=== PATIENT | female | born 2000 | race African-American/Black ===

== ENCOUNTER 2023-09-08 19:23 | Emergency (ER) | payer OTHER, SELFPAY ==
[2023-09-08 19:39] VITALS: RESP 16; O2SAT 99
[2023-09-08 19:40] VITALS: BP 135/78; PULSE 74; RESP 18; TEMP 36.7; O2SAT 99; BMI 23.8
--- NOTE | 2023-09-08 20:39 | ED_ITS ---
[facility] - General Adult General Date Seen: 09/08/23 Chief complaint: Unspecified Complaint, Adult Stated complaint: ingrown toenail Time Seen by Provider: 09/08/23 19:24 Source: patient Mode of arrival: ambulatory Limitations: no limitations History of Present Illness [facility] narrative: Patient is a 22-year-old female presenting for bilateral big toe pain. She is having issues with ingrown toenails bilaterally. Left is notably worse than the right. States the pain is getting worse. Has not been on any antibiotics. Denies fevers, chills, weakness disc. No other concerns noted Related Data Home Medications Medication Instructions Recorded Confirmed No Known Home Medications 04/09/22 09/08/23 Allergies Allergy/AdvReac Type Severity Reaction Status Date / Time No Known Drug Allergies Allergy Verified 09/08/23 19:40 Review of Systems Narrative: Pertinent systems were reviewed and were negative unless stated in HPI REPLACED BY [facility] Medical History (Updated 09/08/23 @ 21:10 by Kraig Ott DO) No significant past medical history Surgical History (Updated 09/08/23 @ 19:46 by Arturo Allen RN) No significant past surgical history Social History Smoking Status: Never smoker Second hand tobacco smoke exposure: No How often do you have a drink containing alcohol: never How often do you have six or more drinks on one occasion: Never AUDIT-C Alcohol total score: 0 Non-prescribed substance use: denies use Little interest or pleasure in doing things: not at all Feeling down, depressed, or hopeless: not at all Exam Narrative: Exam Narrative: Const: Well-nourished, Well-developed, in mild distress Eyes: PERRL, no conjunctival injection, and symmetrical lids HENT: Atraumatic external nose and ears. Moist mucous membranes. MSK:Extremities w/o deformity, Normal Active ROM Skin: Warm, Dry. No rashes or lesions. Ingrown toenail seen bilaterally with some discharge coming from the left. Both are on the medial aspect of the toe Neuro: Normal Muscle tone, No focal neurological deficits. Psych: Awake, Alert, & Oriented x3. Appropriate mood and affect. Const: Vital Signs, click to edit/add: Vital Signs - 24 hr 09/08/23 19:39 09/08/23 19:40 Temperature 98.1 F Pulse Rate [Right Pulse Oximeter] 74 Respiratory Rate 18 Respiratory Rate [ Left Toe] 16 Blood Pressure [Ri ght Upper Arm] 135/78 Pulse Oximetry 99 Oxygen Delivery Me thod Room Air Course Vital Signs Vital signs: Initial Vital Signs Respiratory Rate 16 09/08/23 19:39 Vital Signs Respiratory Rate 16 09/08/23 19:39 Temperature 98.1 F 09/08/23 19:40 Pulse Rate 74 09/08/23 19:40 Respiratory Rate 18 09/08/23 19:40 Blood Pressure 135/78 09/08/23 19:40 Pulse Oximetry 99 09/08/23 19:40 Oxygen Delivery Method Room Air 09/08/23 19:40 Medications Administered Medications: Discontinued Medications Generic Name Dose Route Start Last Admin Trade Name Freq PRN Reason Stop Dose Admin Lidocaine/Epinephrine 6 ml 09/08/23 20:41 09/08/23 20:40 Lidocaine 1%-Epi 1:100,000 20 Ml INFILTRATI 09/08/23 20:42 6 ml ONCE ONE Administration Medical Decision Making MDM Narrative Medical decision making narrative: Patient is a 22-year-old female presenting for a bilateral big toe ingrown toenails. Left is worse than right. She does want ingrown portion removed. Will started on the left. I removed the nail portion that was ingrown causing the issues on both big toes. She tolerated the procedure well. She is doing well and can be discharged home. Not requiring antibiotics Discharge Plan Discharge Clinical Impression: Ingrowing toenail Patient Disposition: Home, Self-Care Condition: Stable Instructions: Ingrown Nail (ED) Additional Instructions: Take Tylenol and ibuprofen if you are having any pain. Antibiotics are necessary at this time but he can follow up with primary care provider if symptoms are not improving. Prescriptions: No Action No Known Home Medications Follow Up/Referrals: Agustin Hobson MD [Primary Care Provider] - Stand Alone Forms: [facility] Info Instructions Procedures Nail Procedure Location (toes): first digit (Bilateral big toe) Procedure performed: nail avulsion (partial removal ingrown toenail)
[2023-09-08 21:53] VITALS: BP 122/68; PULSE 79; RESP 18; TEMP 36.7; O2SAT 99
== END 2023-09-08 21:23 | disposition home or self-care (01) ==
PROVIDERS: Emergency Provider Student in an Organized Health Care Education/Training Program; PCP Family Medicine
DX: L60.0 Ingrowing nail (principal)
CPT/HCPCS: 11730; 11732; 99282; 99283

== ENCOUNTER 2023-11-29 08:07 | Emergency (ER) | payer OTHER, SELFPAY ==
[2023-11-29 08:19] VITALS: BP 115/72; PULSE 56; RESP 16; TEMP 36.8; O2SAT 99; BMI 25.3
--- NOTE | 2023-11-29 10:47 | ED_ITS ---
HPI - General Adult General Chief complaint: Extremity Pain/Injury, Lower Stated complaint: ingrown toenail Time Seen by Provider: 11/29/23 08:28 History of Present Illness HPI narrative: This 23-year-old female comes in with pain in her left great toe because the toenail is cutting in on the lateral aspect of the toe. She states that she has had problem like this in the past and came to the emergency department and had the nail trimmed back to relieve pressure in this area. She is requesting that to be done again today. She states that she is otherwise in good health. Related Data Home Medications Medication Instructions Recorded Confirmed No Known Home Medications 04/09/22 09/08/23 Allergies Allergy/AdvReac Type Severity Reaction Status Date / Time No Known Drug Allergies Allergy Verified 09/08/23 19:40 Review of Systems Status of ROS: Reports: 10 or more systems reviewed and unremarkable except as noted in History and below Narrative: Constitutional: No fevers, no weight gain or loss. Eyes: No discharge. No vision changes. HENT: No congestion, no sore throat, no ear pain. Cardiovascular: No chest pain, no palpitations. Respiratory: No shortness of breath, no wheezes, no cough. Gastrointestinal: No abdominal pain, no vomiting, no diarrhea. Genitourinary: No dysuria, no hematuria. Musculoskeletal: Normal range of motion. Skin: No rashes, no pruritis. Neurological: No dizziness, weakness, sensory change, speech change. Endo/Heme/Allergies: No bruising or bleeding. No polydipsia. Pysch: no suicidality, no anxiety, no insomnia. All other systems reviewed and are negative. [facility] Medical History (Updated 11/29/23 @ 10:50 by Roverto Lou MD) No significant past medical history Surgical History (Updated 09/08/23 @ 19:46 by Arturo Allen RN) No significant past surgical history Social History Smoking Status: Never smoker Second hand tobacco smoke exposure: No How often do you have a drink containing alcohol: never How often do you have six or more drinks on one occasion: Never AUDIT-C Alcohol total score: 0 Non-prescribed substance use: denies use Little interest or pleasure in doing things: not at all Feeling down, depressed, or hopeless: not at all Exam Narrative: Exam Narrative: Constitutional: Well-developed, well-nourished, no acute distress. HEENT: Normocephalic, atraumatic. Neck: Normal range of motion. Nontender. Supple. Heart: Intact distal pulses. Lungs: No chest discomfort. No wheezes, rhonchi, or rales. Abdomen: Nontender. Back: Normal range of motion. Extremities: Normal range of motion. Left great toenail is cutting into the skin on the lateral aspect with some appropriate swelling but no purulent discharge or sign of abscess. Skin: Intact. No rash. Warm. No erythema or pallor. Neurologic: No altered sensation. No weakness. Alert and oriented. Psychiatric: No suicidality. No anxiety or depression. No insomnia. Nursing notes and vitals signs are reviewed. Const: Vital Signs, click to edit/add: Vital Signs - 24 hr 11/29/23 08:19 Temperature 98.3 F Pulse Rate [Pulse Oximeter] 56 L Respiratory Rate 16 Blood Pressure [Ri ght Upper Arm] 115/72 Pulse Oximetry 99 Oxygen Delivery Me thod Room Air Course Vital Signs Vital signs: Initial Vital Signs Temperature 98.3 F 11/29/23 08:19 Temperature Source Temporal Artery Scan 11/29/23 08:19 Pulse Rate 56 L 11/29/23 08:19 Respiratory Rate 16 11/29/23 08:19 Blood Pressure 115/72 11/29/23 08:19 Blood Pressure Mean 86 11/29/23 08:19 Pulse Oximetry 99 11/29/23 08:19 Oxygen Delivery Method Room Air 11/29/23 08:19 Vital Signs Temperature 98.3 F 11/29/23 08:19 Pulse Rate 56 L 11/29/23 08:19 Respiratory Rate 16 11/29/23 08:19 Blood Pressure 115/72 11/29/23 08:19 Pulse Oximetry 99 11/29/23 08:19 Oxygen Delivery Method Room Air 11/29/23 08:19 Temperature 98.3 F 11/29/23 08:19 Pulse Rate 56 L 11/29/23 08:19 Respiratory Rate 16 11/29/23 08:19 Blood Pressure 115/72 11/29/23 08:19 Pulse Oximetry 99 11/29/23 08:19 Oxygen Delivery Method Room Air 11/29/23 08:19 Medical Decision Making MDM Narrative Medical decision making narrative: This patient has edge of her left great toenail cutting into the skin. I did place a digital block using 1% lidocaine. I was able to trim the nail back away from this area. I did also instruct her regarding maintenance for prevention of this type of condition as this has happened in the past. I recommended follow- up with primary physician or circuit court clerk for ongoing management. Discharge Plan Discharge Clinical Impression: Ingrowing toenail of left foot Patient Disposition: Home, Self-Care Condition: Stable Additional Instructions: Keep toenails trimmed off of the edges to avoid cutting into the skin. Follow- up with primary physician or circuit court clerk if needed. Prescriptions: No Action No Known Home Medications Follow Up/Referrals: Agustin Hobson MD [Primary Care Provider] - Stand Alone Forms: [facility] Info Instructions
== END 2023-11-29 11:04 | disposition home or self-care (01) ==
PROVIDERS: Emergency Provider Emergency Medicine Emergency Medical Services; PCP Family Medicine
DX: L60.0 Ingrowing nail (principal)
CPT/HCPCS: 99282; 99283; 99284